=== PATIENT | female | born 1960 | race African-American/Black ===

== ENCOUNTER 2017-09-18 16:26 | Emergency (ER) | payer OTHER ==
[2017-09-18 16:33] VITALS: BP 148/98
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
== END 2017-09-18 17:03 | disposition left against medical advice (07) ==
LOC: UCEAST 16:26
DX: R07.9 Chest pain, unspecified (principal)
CPT/HCPCS: 93005; 99212; G0463

== ENCOUNTER 2017-09-18 17:20 | Observation (INO) | payer OTHER ==
--- NOTE | 2017-09-18 18:42 | RAD ---
HISTORY: Chest pain COMPARISONS: June 25, 2015 VIEWS: 1: frontal portable view of the chest at 6:25 PM FINDINGS: LINES AND TUBES: None. CARDIOMEDIASTINAL SILHOUETTE: The cardiomediastinal silhouette is normal for portable technique. PLEURA: The costophrenic angles are sharp. No pleural abnormalities are noted. LUNG PARENCHYMA: The lungs are clear. ABDOMEN: The upper abdomen is clear. There is no subphrenic gas. BONES AND SOFT TISSUES: No bone or soft tissue abnormalities are noted. IMPRESSION: NO ACTIVE CARDIOPULMONARY DISEASE.
[2017-09-18 18:45] LABS: ABS Basophils 0 10^3/ul (0-0.2); ABS Eosinophils 0.1 10^3/ul (0-0.6); ABS Lymphocytes 2.3 10^3/ul (1.0-4.8); ABS Monocytes 0.4 10^3/ul (0-0.8); ABS Nucleated RBC 0 10^3/ul; Eosinophil % 1.9 % (0-6); Hematocrit 40 % (35-47); Hemoglobin 13.8 g/dl (12.0-16.0); Lymphocyte % 39.2 % (25-47); Mean Corpuscular HGB Conc 34 g/dl (31-36); Mean Corpuscular Hemoglobin 30 pg (27-31); Mean Corpuscular Volume 86 fL (80-97); Mean Platelet Volume 10 um3 (7.4-10.4); Nucleated Red Blood Cells % 0.1; Platelet Count 220 10^3/ul (150-450); Red Blood Count 4.66 10^6/ul (4.0-5.4); Red Cell Distribution Width 16 % (10.5-15); White Blood Count 5.9 10^3/ul (3.5-10.8)
[2017-09-18 18:56] LABS: INR 0.94 (0.77-1.02)
[2017-09-18 19:01] LABS: EGFR Non-African American 63.9 (>60)
[2017-09-18 19:31] LABS: Urine Appearance Cloudy; Urine Blood Negative (Negative); Urine Color Yellow; Urine Ketones Negative (Negative); Urine Protein Negative (Negative); Urine Specific Gravity 1.023 (1.010-1.030); Urine Urobilinogen Negative (Negative)
[2017-09-18] MEDS ORDERED: Al Hydrox/Mg Hydrox/Simet LIQ* 30 ML UDC PO PRN (20:24)
[2017-09-18] MEDS ORDERED: Acetaminophen TAB* 325 MG PO PRN (20:24)
[2017-09-18] MEDS ORDERED: Citalopram TAB* 20 MG PO SCH (23:00)
[2017-09-18] MEDS ORDERED: traZODone TAB* 50 MG TAB PO PRN (23:17)
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
[2017-09-19] MEDS ORDERED: Levothyroxine TAB* 50 MCG TAB PO SCH (06:00)
[2017-09-19 07:56] VITALS: BP 119/60
--- NOTE | 2017-09-19 22:41 | ED ---
rBant Jaeger Stephanie, scribed for Sergio Tabares MD on 09/18/17 at 1841 . HPI Chest Pain - HPI Summary HPI Summary: The pt is a 57 y/o F presenting to the ED with c/o chest wall tightness that began at 16:00 today. The chest tightness lasted about 5-10 minutes. The pt denies SOB, dizziness, edema and N/V/D. She reports a hx of untreated variable blood pressure. - History of Current Complaint Chief Complaint: EDChestWallPain Time Seen by Provider: 09/18/17 18:13 Hx Obtained From: Patient Onset/Duration: Started Hours Ago - 3, Resolved Timing: Lasting Minutes - 10 Current Severity: None Pain Intensity: 0 Pain Scale Used: 0-10 Numeric Chest Pain Location: Diffuse Chest Pain Radiates: No Aggravating Factor(s): Nothing Alleviating Factor(s): Nothing Associated Signs and Symptoms: Positive: Chest Pain. Negative: Shortness of Breath, Nausea, Vomiting - Allergy/Home Medications Allergies/Adverse Reactions: Allergies Allergy/AdvReac Type Severity Reaction Status Date / Time Latex, Natural Rubber Allergy Rash Verified 09/18/17 16:34 NSAIDS (Non-Steroidal Allergy Hives Verified 09/18/17 16:34 Anti-Inflamma Quinolones Allergy Anaphylatic Verified 09/18/17 16:34 Shock PMH/Surg Hx/FS Hx/Imm Hx Endocrine/Hematology History: Reports: Hx Thyroid Disease - hypothyroid Denies: Hx Diabetes Cardiovascular History: Reports: Hx Hypertension - pre? Respiratory History: Denies: Hx Chronic Obstructive Pulmonary Disease (COPD) - Cancer History Hx Chemotherapy: No Hx Radiation Therapy: No - Surgical History Surgery Procedure, Year, and Place: HYSTERECTOMY (uterus then ovaries 5 yrs later) wisdom teeth and other extraction Infectious Disease History: No Infectious Disease History: Reports: Hx Shingles Denies: Hx Clostridium Difficile, Hx Hepatitis, Hx Human Immunodeficiency Virus (HIV), Hx of Known/Suspected MRSA, Hx Tuberculosis, Hx Known/Suspected VRE , Hx Known/Suspected VRSA, History Other Infectious Disease, Traveled Outside the [place] in Last 30 Days - Family History Known Family History: Positive: Cardiac Disease, Other - stroke - Social History Occupation: Employed Full-time Lives: With Family Alcohol Use: None Substance Use Type: Reports: None Smoking Status (MU): Never Smoked Tobacco Review of Systems Negative: Fever, Chills Negative: Erythema Negative: Sore Throat Positive: Chest Pain Negative: Shortness Of Breath, Cough Negative: Abdominal Pain, Vomiting, Diarrhea, Nausea Negative: dysuria, hematuria Negative: Myalgia, Edema Skin: Other - Negative: dizziness Negative: Rash Neurological: Other - Negative: dizziness All Other Systems Reviewed And Are Negative: Yes Physical Exam - Summary Physical Exam Summary: Constitutional: Well-developed, Well-nourished, Alert. (-) Distressed Skin: Warm, Dry HENT: Normocephalic; Atraumatic Eyes: Conjunctiva normal Neck: Musculoskeletal ROM normal neck. (-) JVD, (-) Stridor, (-) Tracheal deviation Cardio: Rhythm regular, rate normal, Heart sounds normal; Intact distal pulses; The pedal pulses are 2+ and symmetric. Radial pulses are 2+ and symmetric. (-) Murmur Pulmonary/Chest wall: Effort normal. (-) Respiratory distress, (-) Wheezes, (-) Rales Abd: Soft, (-) Tenderness, (-) Distension, (-) Guarding, (-) Rebound Musculoskeletal: (-) Edema Lymph: (-) Cervical adenopathy Neuro: Alert, Oriented x3 Psych: Mood and affect Normal Triage Information Reviewed: Yes Vital Signs On Initial Exam: Initial Vitals Temp Pulse Resp BP Pulse Ox 98.4 F 67 18 161/98 99 09/18/17 17:26 18 17:26 18 17:26 18 17:26 09/18/17 17:26 Vital Signs Reviewed: Yes Diagnostics - Vital Signs Vital Signs Temp Pulse Resp BP Pulse Ox 09/18/17 18:25 65 8 139/95 100 09/18/17 18:15 99 96 09/18/17 17:26 98.4 F 67 18 161/98 99 - Laboratory Result Diagrams: 09/18/17 18:20 09/18/17 19:15 Lab Statement: Any lab studies that have been ordered have been reviewed, and results considered in the medical decision making process. - Radiology CXR Xray Interpretation: No Acute Changes Radiology Interpretation Completed By: Radiologist - NO ACTIVE CARDIOPULMONARY DISEASE. - EKG 17:30 EKG Rhythm: Sinus Rhythm - 66 BPM EKG Interpretation: inferior and lateral T wave flattening Chest Pain Course/Dx - Course Course Of Treatment: ED physician will not administer aspirin to the pt due to NSAID allergy. The pt will be admitted for further workup. - Diagnoses Provider Diagnoses: Atypical chest pain Discharge - Discharge Plan Condition: Stable Disposition: ADMITTED TO [facility] Referrals: Nereida Velzi MD [Primary Care Provider] - The documentation as recorded by the Brant muhammad Stephanie accurately reflects the service I personally performed and the decisions made by Rayshawn danielle Jerry, MD.
--- NOTE | 2017-09-20 05:14 | DS ---
CC: Dr. Veliz * DISCHARGE SUMMARY: DATE OF ADMISSION: 09/18/17 DATE OF DISCHARGE: 09/19/17 PRINCIPAL DISCHARGE DIAGNOSIS: Atypical chest pain. SECONDARY DISCHARGE DIAGNOSES: 1. Anxiety. 2. Hypertension. 3. Hypothyroid. 4. Depression. PHYSICAL EXAMINATION: At discharge, temperature 97.9, heart rate 70, respiratory rate 16, pulse ox 97% on room air, blood pressure 134/77. General: Alert, well- appearing female, in no distress. HEENT: Pupils equal, round, and reactive to light. No conjunctival injection. No nystagmus. Moist mucosa. No pharyngeal exudate or erythema. Neck: No JVP. No cervical adenopathy. Chest: Regular rate and rhythm. PMI nondisplaced. No murmurs. Lungs: Clear bilaterally. Abdomen: Soft, nontender, nondistended, obese. Normoactive bowel sounds. Extremities: No edema, no rashes. Distal pulses 2+ . Neurologic: Strength is 5+ throughout. Sensation is grossly intact. DIAGNOSTIC STUDIES/LAB DATA: Pertinent labs: Troponin 0.00, 0.00, 0.00. Electrocardiogram: Normal sinus rhythm, normal axis, normal intervals. No chamber hypertrophy. No ST or T-wave changes except for T-wave flattening in III, aVF, and V6, which is unchanged from prior EKGs. HOSPITAL COURSE BY PROBLEM: 1. Atypical chest pain. Ms. Benton presented after a 5-minute episode of squeezing discomfort in her chest while she was driving her car yesterday. It resolved on its own without intervention. She cites many social stressors in her life at this time and believes the discomfort may have been related to anxiety. She was admitted for an ACS rule out. Acute coronary syndrome was ruled out with normal troponins and an unchanged EKG from prior. I discussed an outpatient stress test with her and she is open to this. I am ordering an outpatient nuclear stress test and she agrees to schedule this as well as follow up with her PCP, Dr. Veliz. We discussed modifiable risk factors such as weight loss and blood pressure control. 2. Poorly controlled hypertension. She reports that her PCP has been monitoring her blood pressure and it has been variable in her office. During this admission, she also was found to have periods of normal blood pressure as well as periods of hypertension. Upon arrival to the emergency department, her blood pressure was 161/98 and at the time of discharge, her blood pressure is 134/77. This may also be related to anxiety; however, I recommended that she follow up with her PCP within the next week for blood pressure check. 3. Hypothyroid. She was continued on her home dose of Synthroid. 4. Depression. She was continued on her home dose of Celexa. 5. Disposition. Ms. Benton is discharged to home on 09/19/17 with an order for an outpatient stress test and instructions to call her PCP tomorrow morning to schedule followup within the next 1 to 2 weeks. She is instructed to return to the emergency department should she experience any further chest tightness, pain, discomfort, shortness of breath, palpitations, or any other symptoms out of the ordinary. [id number]/[facility] #: [id number] MTDD
== END 2017-09-19 10:06 | disposition home or self-care (01) ==
LOC: ED 17:20 → MEDTELE 20:24
PROVIDERS: ADMIT Internal Medicine; ATTEND Internal Medicine
DX: R07.89 Other chest pain (principal); I10 Essential (primary) hypertension; E03.9 Hypothyroidism, unspecified; F32.9 Major depressive disorder, single episode, unspecified; F41.9 Anxiety disorder, unspecified
CPT/HCPCS: 36415; 71045; 80053; 81003; 82550; 82553; 83605; 83735; 84484; 85025; 85610; 93005; 99284; A9270-GY; G0378

== ENCOUNTER 2017-11-06 14:56 | Emergency (ER) | payer OTHER ==
[2017-11-06 16:38] VITALS: BP 137/85
--- NOTE | 2017-11-06 16:51 | UC ---
Skin Complaint HPI - HPI Summary HPI Summary: c/o abscess developing in genital area for the past 3 days, which started as an ingrown hair. She states she does not shave her genital area. She is compliant with her medications and was recently started on Lamisil for onychomycosis. Denies fever but the area has become very tender. Denies history of MRSA - History of Current Complaint Chief Complaint: UCSkin Time Seen by Provider: 11/06/17 16:45 Stated Complaint: BOIL Hx Obtained From: Patient Onset/Duration: Gradual Onset, Lasting Days Skin Exposure Onset/Duration: Days Ago Timing: Constant Onset Severity: Mild Current Severity: Moderate Pain Intensity: 6 Location: Other - right groin Character: Pain Aggravating Factor(s): Touch Alleviating Factor(s): Nothing Associated Signs & Symptoms: Positive: Negative - Allergy/Home Medications Allergies/Adverse Reactions: Allergies Allergy/AdvReac Type Severity Reaction Status Date / Time Latex, Natural Rubber Allergy Rash Verified 11/06/17 16:37 NSAIDS (Non-Steroidal Allergy Hives Verified 11/06/17 16:37 Anti-Inflamma Quinolones Allergy Anaphylatic Verified 11/06/17 16:37 Shock Home Medications: Home Medications Ascorbic Acid TAB* [Vitamin C TAB*] 500 mg PO DAILY 11/06/17 [History Confirmed 11/06/17] Garlic 1 each PO 11/06/17 [History] Multivit-Min/Iron/Folic/Lutein [Centrum Silver Women Tablet] 1 each PO DAILY 02/16 [History Confirmed 11/06/17] Terbinafine HCl 250 mg PO DAILY 11/06/17 [History Confirmed 11/06/17] Review of Systems Constitutional: Negative All Other Systems Reviewed And Are Negative: Yes PMH/Surg Hx/FS Hx/Imm Hx Previously Healthy: Yes Endocrine History: Hypothyroidism Psychological History: Depression - Surgical History Surgical History: Yes Surgery Procedure, Year, and Place: HYSTERECTOMY (uterus then ovaries 5 yrs later) wisdom teeth and other extraction - Family History Known Family History: Positive: Cardiac Disease, Other - stroke - Social History Alcohol Use: None Substance Use Type: None Smoking Status (MU): Never Smoked Tobacco - Immunization History Most Recent Tetanus Shot: 2000 Physical Exam Triage Information Reviewed: Yes Appearance: Well-Appearing, No Pain Distress, Obese Vital Signs: Initial Vital Signs Temp 98.2 F 11/06/17 16:33 Pulse 94 04/07/18 16:33 Resp 16 11/06/17 16:33 BP 137/85 11/06/17 16:33 Pulse Ox 100 11/06/17 16:33 Vital Signs Reviewed: Yes Eyes: Positive: Conjunctiva Clear Neck: Positive: Supple, Nontender, No Lymphadenopathy Respiratory: Positive: Chest non-tender, No respiratory distress Cardiovascular: Positive: Pulses Normal, Brisk Capillary Refill Bowel Sounds: Positive: Present Musculoskeletal Exam: Normal Neurological Exam: Normal Skin Exam: Other - erythema with induration and fluctuation on right labia majora. Tender to touch, no spontaneous drainage Course/Dx - Course Course Of Treatment: Epson salts sits baths, protective padding for discharge. Start antibiotics as prescribed, probiotics. F/u PCP - Diagnoses Provider Diagnoses: Abscess right Labia majora Procedures - Incision and Drainage Site: right labia Instrument(s): Scalpel Packing: Gauze Discharge - Sign-Out/Discharge Documenting (check all that apply): Discharge - Discharge Plan Condition: Stable Disposition: HOME Patient Education Materials: Abscess (ED), Sulfamethoxazole/Trimethoprim (By mouth), Abscess Incision and Drainage (DC) Referrals: Nereida Veliz MD [Primary Care Provider] - - Billing Disposition and Condition Condition: STABLE Disposition: HOME Images Perineum Female: 1 - area of induration and erythema 2 - area of fluctuation
[2017-11-06] MEDS ORDERED: Sulfamethox/Trimethoprim DS 800/160* TAB PO ONE ×2 (17:30)
== END 2017-11-06 17:54 | disposition home or self-care (01) ==
LOC: UCEAST 14:56
DX: N76.4 Abscess of vulva (principal); E03.9 Hypothyroidism, unspecified; F32.9 Major depressive disorder, single episode, unspecified; Z88.6 Allergy status to analgesic agent; Z88.1 Allergy status to other antibiotic agents; Z91.040 Latex allergy status
CPT/HCPCS: 10060; 56405; 99212; A9270-GY; G0463

== ENCOUNTER 2018-09-07 17:18 | Emergency (ER) | payer OTHER ==
[2018-09-07 17:34] VITALS: BP 132/84
[2018-09-07] MEDS ORDERED: Lidocaine 1%* 5 ML VIAL INJ ONE (18:10)
--- NOTE | 2018-09-07 19:20 | UC ---
Skin Complaint HPI - HPI Summary HPI Summary: 58 y/o female presents to the urgent care c/o Pt has a painful, itchy bump on the right side of her back, has been there for about two weeks and is growing and has been getting red and more painful with 8/ 10 pain. 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 Negative: Nausea, Vomiting, Fever, Chills Related History: Other: - infected pimple - Allergy/Home Medications Allergies/Adverse Reactions: Allergies Allergy/AdvReac Type Severity Reaction Status Date / Time Latex, Natural Rubber Allergy Rash Verified 09/07/18 17:35 NSAIDS (Non-Steroidal Allergy Hives Verified 09/07/18 17:35 Anti-Inflamma Quinolones Allergy Anaphylatic Verified 09/07/18 17:35 Shock PMH/Surg Hx/FS Hx/Imm Hx Previously Healthy: Yes Endocrine History: Hypothyroidism Psychological History: Anxiety - Surgical History Surgical History: Yes Surgery Procedure, Year, and Place: HYSTERECTOMY (uterus then ovaries 5 yrs later) wisdom teeth and other extraction - Family History Known Family History: Positive: Cardiac Disease, Other - stroke - Social History Occupation: Employed Full-time Alcohol Use: None Substance Use Type: None Smoking Status (MU): Never Smoked Tobacco - Immunization History Most Recent Tetanus Shot: 2000 Review of Systems All Other Systems Reviewed And Are Negative: Yes Constitutional: Positive: Negative Skin: Positive: Rash - Rt side o fupper back with a painful lump draining pus Eyes: Positive: Negative ENT: Positive: Negative Respiratory: Positive: Negative Cardiovascular: Positive: Negative Gastrointestinal: Positive: Negative Genitourinary: Positive: Negative Motor: Positive: Negative Neurovascular: Positive: Negative Musculoskeletal: Positive: Negative Neurological: Positive: Negative Psychological: Positive: Negative Is Patient Immunocompromised?: No Physical Exam - Summary Physical Exam Summary: Vital Signs Reviewed: Yes General: well developed, well nourished male sitting in the examining table w/o any apparent distress Eye Exam: Normal Eyes: Positive: Conjunctiva Clear - PERRLA, EOMI, fundi grossly normal ENT: Positive: Normal ENT inspection, Hearing grossly normal, Pharynx normal, TMs normal Neck: Positive: Supple, Nontender, No Lymphadenopathy Respiratory: Positive: Chest non-tender, Lungs clear, Normal breath sounds, No respiratory distress Cardiovascular: Positive: RRR, No Murmur, Pulses Normal, Brisk Capillary Refill Abdomen Description: Positive: Nontender, No Organomegaly, Soft. Negative: CVA Tenderness (R), CVA Tenderness (L) Bowel Sounds: Positive: Present Musculoskeletal: Positive: Strength Intact, ROM Intact, No Edema Neurological: Positive: Alert, Muscle Tone Normal Psychological Exam: Normal Skin: Positive: RT side of upper back with a small erythematous pustule that is indurated and fluctuant, tender to palpation, swollen, and warm to touch about 2.0cm x 2.0cm in size, sensation is intact, capillary refill WNL, reflexes WNL Triage Information Reviewed: Yes Vital Signs: Initial Vital Signs Temp 98.0 F 09/07/18 17:28 Pulse 75 09/07/18 17:28 Resp 16 09/07/18 17:28 BP 132/84 09/07/18 17:28 Pulse Ox 100 09/07/18 17:28 Course/Dx - Differential Diagnoses - Skin Complaint Differential Diagnoses: Abscess, Cellulitis, Contact Dermatitis, MRSA, Urticaria - Diagnoses Provider Diagnosis: Back abscess Discharge - Discharge Plan Condition: Stable Disposition: HOME Prescriptions: Bacitracin OINTMENT* 1 applic TOPICAL BID #1 tube Fluconazole 150 MG TAB* [Diflucan 150 MG TAB*] 150 mg PO ONCE #1 tablet Sulfamethox/Trimethoprim DS* [Bactrim DS 800/160 TAB*] 1 tab PO BID #20 tab Patient Education Materials: Abscess (ED) Referrals: Nereida Veliz MD [Primary Care Provider] - 2 Days Additional Instructions: 1-Please take full course of antibiotic to avoid resistance. Keep wound clean and dry with a sterile dressing. Apply bacitracin topical as directed 2- F/u wound check up in 2 days with your PCP or at the urgent care for removal of packing 3-. Take Ibuprofen PO q6-8hrs prn for pain or swelling. 4-If you develop fever or redness despite antibiotic please go to the ER immediately or return to the Urgent care. 5- Wound culture sent to lab, if any abnormal result you will receive a call from us. - Billing Disposition and Condition Condition: STABLE Disposition: Home
== END 2018-09-07 19:45 | disposition home or self-care (01) ==
LOC: UCEAST 17:18
DX: L02.212 Cutaneous abscess of back [any part, except buttock and flank] (principal); Z91.040 Latex allergy status; Z88.8 Allergy status to other drugs, medicaments and biological substances
CPT/HCPCS: 10060; 87070; 87205; 99212; G0463

== ENCOUNTER 2018-09-10 15:24 | Emergency (ER) | payer OTHER ==
[2018-09-10 15:43] VITALS: BP 115/82
--- NOTE | 2018-09-10 16:01 | UC ---
HPI Wound/Suture Re-check - HPI Summary HPI Summary: PATIENT HAD AN ABSCESS ON HER BACK I&D 3 DAYS AGO ON 09/07/18. SHE IS HERE FOR RECHECK ADVISED. STATES THE INFECTION IS FEELING BETTER BUT IS SLIGHTLY ITCHY. HAS BEEN TAKING HER BACTRIM TWICE DAILY PRESCRIBED. NO FEVERS. HAS A LOCAL SKIN REACTION TO ADHESIVE FROM THE BANDAGE. 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 Severity: Mild Pain Intensity: 1 Pain Scale Used: 0-10 Numeric - Allergies/Home Medications Allergies/Adverse Reactions: Allergies Allergy/AdvReac Type Severity Reaction Status Date / Time Latex, Natural Rubber Allergy Rash Verified 09/10/18 15:44 NSAIDS (Non-Steroidal Allergy Hives Verified 09/10/18 15:44 Anti-Inflamma Quinolones Allergy Anaphylatic Verified 09/10/18 15:44 Shock PMH/Surg Hx/FS Hx/Imm Hx - Additional Past Medical History Additional PMH: INSOMNIA - Surgical History Surgical History: Yes Surgery Procedure, Year, and Place: HYSTERECTOMY (uterus then ovaries 5 yrs later) wisdom teeth and other extraction - Family History Known Family History: Positive: Cardiac Disease, Other - stroke - Social History Alcohol Use: None Substance Use Type: None Smoking Status (MU): Never Smoked Tobacco - Immunization History Most Recent Tetanus Shot: 2000 Review of Systems All Other Systems Reviewed And Are Negative: Yes Constitutional: Positive: Negative Skin: Positive: Other - HEALING ABSCESS Respiratory: Positive: Negative Cardiovascular: Positive: Negative Gastrointestinal: Positive: Negative Physical Exam Triage Information Reviewed: Yes Appearance: Well-Appearing, No Pain Distress, Well-Nourished Vital Signs: Initial Vital Signs Temp 97.8 F 09/10/18 15:40 Pulse 75 09/10/18 15:40 Resp 16 09/10/18 15:40 BP 115/82 09/10/18 15:40 Pulse Ox 99 09/10/18 15:40 Vital Signs Reviewed: Yes Eyes: Positive: Conjunctiva Clear ENT: Positive: Hearing grossly normal Neck: Positive: Supple Respiratory: Positive: No respiratory distress, No accessory muscle use Cardiovascular: Positive: Pulses Normal Abdomen Description: Positive: Soft Musculoskeletal: Positive: No Edema Neurological: Positive: Alert Psychological: Positive: Age Appropriate Behavior Skin: Positive: Other - 4CM DIAMETER HYPERPIGMENTED, INDURATED AREA OF SKIN RIGHT UPPER BACK WITH 2 CENTRAL OPENINGS DRAINING SCANT AMOUNTS OF PUS. SURROUNDING SKIN IS DRY ANMD FLAKY. NO PACKING PRESENT. Course/Dx - Course Course Of Treatment: SMALL AMOUNT OF PUS EXPRESSED FROM HEALING ABSCESS ON THE RIGHT UPPER BACK. WOUND WAS DRESSED. CULTURE RESULTS REVIEWED. NO SPECIFIC ORGANISM WAS ISOLATED. ADVISED TO CONTINUE BACTRIM PRESCRIBED TO COMPLETE COURSE. CONTINUE HOT COMPRESSES 4-5 TIMES DAILY. SEEK REEVALUATION IF IT DOES NOT CONTINUE TO IMPROVE. ADVISED DAILY MOISTURIZER TO SURROUNDING AREA TO HELP WITH LOCAL IRRITATION FROM BANDAGE ADHESIVE. - Diagnosis Provider Diagnosis: Abscess of back Discharge - Sign-Out/Discharge Documenting (check all that apply): Patient Departure All imaging exams completed and their final reports reviewed: No Studies - Discharge Plan Condition: Stable Disposition: HOME Patient Education Materials: Abscess (ED) Referrals: Nereida Veliz MD [Primary Care Provider] - If Needed Additional Instructions: YOUR ABSCESS IS IMPROVING BUT STILL HAS SOME SLIGHT DRAINAGE. CONTINUE THE HOT COMPRESSES/SOAKS 4-5 TIMES DAILY. USE VASELINE TO MOISTURIZE THE SURROUNDING SKIN TO HELP WITH ITCH. CONTINUE THE ANTIBIOTIC PRESCRIBED. SEEK FOLLOW-UP IF YOU DO NOT CONTINUE TO IMPROVE. - Billing Disposition and Condition Condition: STABLE Disposition: Home
== END 2018-09-10 16:23 | disposition home or self-care (01) ==
LOC: UCEAST 15:24
DX: L02.212 Cutaneous abscess of back [any part, except buttock and flank] (principal); Z91.040 Latex allergy status; Z88.8 Allergy status to other drugs, medicaments and biological substances
CPT/HCPCS: 99211; G0463

== ENCOUNTER 2018-12-04 09:49 | Emergency (ER) | payer OTHER ==
[2018-12-04 10:23] VITALS: BP 145/98
--- NOTE | 2018-12-04 10:54 | UC ---
Skin Complaint HPI - HPI Summary HPI Summary: 58-year-old female presents with complaints of a boil to her left groin x 4 days. States she has a history of recurrent abscesses. No history of MRSA. Denies fever, chills, or drainage. 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 Pain Intensity: 6 - Allergy/Home Medications Allergies/Adverse Reactions: Allergies Allergy/AdvReac Type Severity Reaction Status Date / Time iodine Allergy Unknown Verified 12/04/18 10:16 Reaction Details Latex, Natural Rubber Allergy Rash Verified 12/04/18 10:16 NSAIDS (Non-Steroidal Allergy Hives Verified 12/04/18 10:16 Anti-Inflamma Quinolones Allergy Anaphylatic Verified 12/04/18 10:16 Shock Home Medications: Home Medications Fexofenadine (NF) [Yovana (NF)] 60 mg PO DAILY PRN 12/04/18 [History Confirmed 12/04/18] PMH/Surg Hx/FS Hx/Imm Hx Endocrine History: Hypothyroidism - Surgical History Surgical History: Yes Surgery Procedure, Year, and Place: HYSTERECTOMY (uterus then ovaries 5 yrs later) wisdom teeth and other extraction - Family History Known Family History: Positive: Cardiac Disease, Other - stroke - Social History Occupation: Employed Full-time Lives: With Family Alcohol Use: None Substance Use Type: None Smoking Status (MU): Never Smoked Tobacco - Immunization History Most Recent Tetanus Shot: 2000 Review of Systems All Other Systems Reviewed And Are Negative: Yes Constitutional: Negative: Fever, Chills Skin: Positive: Other - See Respiratory: Positive: Negative Cardiovascular: Positive: Negative Gastrointestinal: Positive: Negative Genitourinary: Positive: Negative Musculoskeletal: Positive: Negative Neurological: Positive: Negative Is Patient Immunocompromised?: No Physical Exam - Summary Physical Exam Summary: GENERAL APPEARANCE: Well developed, obese, alert and cooperative, and appears to be in no acute distress. CARDIAC: Normal S1 and S2. No S3, S4 or murmurs. Rhythm is regular. There is no peripheral edema, cyanosis or pallor. Extremities are warm and well perfused. Capillary refill is less than 2 seconds. Peripheral pulses intact. LUNGS: Clear to auscultation without rales, rhonchi, wheezing or diminished breath sounds. ABDOMEN: Positive bowel sounds. Soft, nondistended, nontender. No guarding or rebound. No masses or hepatosplenomegally. MUSKULOSKELETAL: ROM intact to all extremities. No joint erythema or tenderness. Normal muscular development. Normal gait. SKIN: 5 cm x 2 cm area of tender induration without fluctuance to left groin. Triage Information Reviewed: Yes Vital Signs: Initial Vital Signs Temp 97.8 F 12/04/18 10:18 Pulse 74 12/04/18 10:18 Resp 16 12/04/18 10:18 BP 145/98 12/04/18 10:18 Pulse Ox 100 12/04/18 10:18 Vital Signs Reviewed: Yes Course/Dx - Course Course Of Treatment: 58-year-old female presents with complaints of a boil to her left groin x 4 days. States she has a history of recurrent abscesses. No history of MRSA. Denies fever, chills, or drainage. Afebrile. Hypertensive otherwise vital signs stable. Exam revealed 5 cm x 2 cm area of tender induration without fluctuance to left groin and was otherwise unremarkable. Without a definitive area of fluctuance I suspect that this is an early abscess and will simply treat with a course of Bactrim DS 1 tablet twice a day 7 days. Recommending the use hot packs several times a day. She is to follow up with her primary care provider in 3 days for recheck of symptoms. Anticipatory guidance and warning symptoms reviewed with the patient. Verbalizes understanding and agrees with plan of care. - Differential Diagnoses - Skin Complaint Differential Diagnoses: Abscess, Cellulitis, MRSA - Diagnoses Provider Diagnosis: Abscess of left groin Discharge - Sign-Out/Discharge Documenting (check all that apply): Patient Departure All imaging exams completed and their final reports reviewed: No Studies - Discharge Plan Condition: Stable Disposition: HOME Prescriptions: Fluconazole [Diflucan 150 MG (NF)] 150 mg PO ONCE #1 tab Sulfamethox/Trimethoprim DS* [Bactrim DS 800/160 TAB*] 1 tab PO BID #14 tab Patient Education Materials: Abscess (ED) Referrals: Nereida Veilz MD [Primary Care Provider] - 3 Days Additional Instructions: I suspect that you have an early abscess to your groin however I did not appreciate a pocket of fluid that could be drained at this time. We will start you on an antibiotic to treat the infection. Start Bactrim DS 1 tab twice a day for 7 days. Apply a hot pack several times a day to the affected area to try to try to bring the abscess to a head. Use acetaminophen (Tylenol) or ibuprofen (Advil, Motrin) according to directions as needed for pain. Follow up with your primary care provider in 3 days for a recheck of the wound. Seek immediate medical attention if you develop fever greater than 100.5 F, have increased pain despite taking pain medication, increased swelling, or any worsening of symptoms. - Billing Disposition and Condition Condition: STABLE Disposition: Home
== END 2018-12-04 11:01 | disposition home or self-care (01) ==
LOC: UCEAST 09:49
DX: L02.214 Cutaneous abscess of groin (principal); E03.9 Hypothyroidism, unspecified; Z88.6 Allergy status to analgesic agent; Z88.1 Allergy status to other antibiotic agents; Z91.040 Latex allergy status; Z91.048 Other nonmedicinal substance allergy status
CPT/HCPCS: 99202; G0463